=== PATIENT | male | born 1975 | race Caucasian/White ===

== ENCOUNTER → 2022-02-12 14:45 | Outpatient (REF) | payer OTHER, SELFPAY | LOC: HO.SL 14:45 | PROVIDERS: PCP Physician Assistant; Visit Provider Psychiatry & Neurology Neurology | DX: G47.33 Obstructive sleep apnea (adult) (pediatric) (principal) | CPT/HCPCS: 95806 ==

== ENCOUNTER 2025-06-28 13:21 | Outpatient (AMB) | payer OTHER, SELFPAY ==
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
--- OUTSIDE RECORDS SUMMARY | 2025-06-28 17:20 | XMS_ITS | Encounter Summary ---
Author Organization [facility] Address [address] [address] Phone Care Team Providers Care Tester Armature Or Fields Name Role Phone Theresa Workman PA-C Primary Care Provider + Encounter Details Date Type Department Care Team (Late st Contact Info) Description 05/02/2024 Office Communication [facility] [address] [facility] [address] [place] [address] Marcela Kelley ARNP [address] [address] Social History Tobacco Use Types Packs/Day Years Used Date Smoking Tobacco: Light Smoker Cigarettes Smokeless Tobacco: Current Chew Alcohol Use Standard Drinks/Week Comments Yes 0 (1 standard drink = 0.6 oz pur e alcohol) Varies per day Sex and Gender Information Value Date Recorded Sex Assigned at Not on file Legal Sex Male 4:01 PM EDT Gender Identity Not on file Sexual Orientation Not on file documented as of this encounter Plan of Treatment Upcoming Encounters Date Type Department Care Team (Late st Contact Info) Description 07/05/2025 1:00 PM EDT Office Visit [facility] [address] [phone] Marcela Kelley ARNP [address] [address] documented as of this encounter Visit Diagnoses Not on filedocumented in this encounter Care Teams Tester Armature Or Fields Relationship Specialty Start Date End Date Theresa Workman PA-C [facility] [place], [place] PCP - General Physician Train Announcer 01/02/21 documented as of this encounter
--- OUTSIDE RECORDS SUMMARY | 2025-06-28 17:20 | XMS_ITS | Clinical Summary ---
Author Organization [facility] Address [address] [facility] [address] [place] [address] Phone Care Team Providers Care International Trade Compliance Manager Name Role Phone Theresa Workman PA-C Primary Care Provider + Allergies Active Allergy Reactions Criticality Noted Date Comments Gluten Meal 04/11/2020 GI upset, joint pain Lisinopril 12/24/2021 Angioedema, Swelling face Other 10/15/2021 Medications cetirizine (ZyrTEC) 10 MG tablet 11/09/2020 Active omeprazole (PriLOSEC) [address] capsule 01/15/2021 Active SM ClearLax 17 GM/SCOOP powder 11/29/2020 Act bentley testosterone cypionate (DEPO-TESTOTERON E) 200 MG/ML injection 01/16/2021 Active Ascorbic Acid (vitamin C) 1000 MG tablet Take 100 mg by mouth 1 (one) time each day Active magnesium 30 MG tablet Take 30 mg by mouth in the morning and 30 mg in the evening. Active methocarbamol (ROBAXIN) 500 MG tablet as needed. 10/26/2023 Active Dapagliflozin Propanediol (Farxiga) 10 MG tabletIndication s:Stage 3a chronic kidney disease (HCC),Proteinuri a, not otherwise specified,Hypert ension Take 10 mg by mouth 1 (one) time each day 30 tablet 11 08/08/2024 08/08/20 25 Active metoprolol succinate XL (TOPROL-XL) 200 MG 24 hr tabletIndication s:Stage 3a chronic kidney disease (HCC),Proteinuri a, not otherwise specified,Hypert ension Take 1 tablet (200 mg total) by mouth 1 (one) time each day 90 tablet 3 08/08/2024 08/08/20 25 Active losartan (Cozaar) 50 MG tabletIndication s:Stage 3a chronic kidney disease (HCC),Proteinuri a, not otherwise specified,Hypert ension Take 1 tablet (50 mg total) by mouth 1 (one) time each day 90 tablet 1 02/20/2025 08/19/20 25 Active cloNIDine (CATAPRES) 0.2 MG tabletIndication s:Hypertension Take 1 tablet (0.2 mg total) by mouth in the morning and 1 tablet (0.2 mg total) in the evening. 60 tablet 5 02/20/2025 08/19/20 25 Active Active Problems Problem Noted Date Diagnosed Date Acute nontraumatic kidney injury, not otherwise specified 01/04/2025 Hypo-osmolality and hyponatremia 08/13/2024 Stage 3a chronic kidney disease 08/08/2024 Proteinuria, not otherwise specified 01/20/2021 Hypertension 01/20/2021 Encounters Date Type Department Care Team Description 05/18/2025 Orders Only [facility] [address] [address] Marcela Kelley ARNP Acute nontraumatic kidney injury, not otherwise specified (HCC); Stage 3a chronic kidney disease (HCC); Proteinuria, not otherwise specified; Hypertension from Last 3 Months Family History Medical History Relation Comments Cancer Father Cancer Father's Brother Diabetes Father's Brother Diabetes Maternal Grandmother Diabetes Paternal Grandfather Cancer Paternal Grandmother Relation Status Comments Father Father's Brother Maternal Grandmother Paternal Grandfather Paternal Grandmother Social History Tobacco Use Types Packs/Day Years Used Date Smoking Tobacco: Former Cigarettes Smokeless Tobacco: Former Chew Tobacco Cessation:Counseling Given: Not Answered Alcohol Use Standard Drinks/Week Comments Yes 0 (1 standard drink = 0.6 oz pur e alcohol) Varies per day Sex and Gender Information Value Date Recorded Sex Assigned at Not on file Legal Sex Male 4:01 PM EDT Gender Identity Not on file Sexual Orientation Not on file Last Filed Vital Signs Vital Sign Reading Time Taken Comments Blood Pressure 101/82 01/04/2025 3:16 PM EDT Pulse 61 01/04/2025 3:16 PM EDT Temperature - - Respiratory Rate - - Oxygen Saturation 99% 08/04/2023 10:16 AM EDT Inhaled Oxygen Concentration - - Weight 114 kg (252 lb) 01/04/2025 3:16 PM EDT Height 180.3 cm (5' 11 ) 10/15/2021 11:07 AM EST Body Mass Index 35.15 10/15/2021 11:07 AM EST Plan of Treatment Upcoming Encounters Date Type Department Care Team (Late st Contact Info) Description 07/05/2025 1:00 PM EDT Office Visit [facility] [address] [address] Marcela Kelley ARNP [address] [address] Health Maintenance Due Date Last Done Comments Hepatitis B Vaccine (1 of 3 - 19+ 3-dose series) 07/13 Pneumococcal Vaccine: Peds ( 0 to 5 Years) and At-Risk Patients (6 to 49 Years) (1 of 2 - PCV) 1994 Colorectal Cancer Screening: Annual FOBT 2024 Colorectal Cancer Screening: Colonoscopy 2024 Colorectal Cancer Screening: Sigmoidoscopy 2024 Influenza Vaccine (#1) 2025 Insurance [facility] [place] [phone] Care Teams International Trade Compliance Manager Relationship Specialty Start Date End Date Theresa Workman PA-C [address] [place], [place] PCP - General Physician Airplane Tester 01/02/21
--- OUTSIDE RECORDS SUMMARY | 2025-06-28 17:20 | XMS_ITS | Clinical Summary ---
Author Organization [facility] Address [address] [place] [address] Care Team Providers Care Fish Worm Grower Name Role Phone Theresa Workman PA-C Primary Care Provider Allergies Active Allergy Reactions Criticality Noted Date Comments Lisinopril 03/08/2023 Medications Medication Sig Dispensed Refills Start Date End Date Status cloNIDine (CATAPRES) 0.2 MG tablet Take 1 tablet (0.2 mg total) by mouth 2 (two) times a day. 0 Active losartan (COZAAR) 100 MG tablet Take 1 tablet (100 mg total) by mouth daily. 0 Active Magnesium 400 MG CAPS Take 1 capsule by mouth daily. 90 capsule 0 03/08/2023 Active Pregabalin (LYRICA PO) Take by mouth. 0 Active celecoxib (CeleBREX) 200 MG capsule Take 1 capsule (200 mg total) by mouth 2 (two) times a day. 0 Active Methylphenidate HCl (RITALIN PO) Take by mouth. 0 Active omeprazole (PriLOSEC) 20 MG capsule Take 1 capsule (20 mg total) by mouth daily. 0 Active Active Problems Problem Noted Date Diagnosed Date Folic acid deficiency 03/17/2023 Family History Medical History Relation Name Comments Cancer Paternal Grandmother Relation Name Status Comments Paternal Grandmother Social History Tobacco Use Types Packs/Day Years Used Date Smoking Tobacco: Every Day Cigarettes Smokeless Tobacco: Never Alcohol Use Standard Drinks/Week Comments Yes 0 (1 standard drink = 0.6 oz pur e alcohol) Sex and Gender Information Value Date Recorded Sex Assigned at Not on file Gender Identity Not on file Sexual Orientation Not on file Job Start Date Occupation Industry Not on file Not on file Not on file Last Filed Vital Signs Vital Sign Reading Time Taken Comments Blood Pressure 129/83 05/02/2024 2:58 PM EDT Pulse 62 05/02/2024 2:58 PM EDT Temperature 36.4 C (97.6 F) 05/02/2024 2:58 PM EDT Respiratory Rate - - Oxygen Saturation 98% 05/02/2024 2:58 PM EDT Inhaled Oxygen Concentration - - Weight 111.1 kg (245 lb) 05/02/2024 2:58 PM EDT Height 181.6 cm (5' 11.5 ) 11/23/2023 2:32 PM ES T Body Mass Index 33.69 11/23/2023 2:32 PM EST Plan of Treatment Health Maintenance Due Date Last Done Comments Hepatitis B Vaccines (1 of 3 - 3-dose series) 1975 Hepatitis C Screening 1975 COVID-19 Vaccine (#1) 01/11/1976 Pneumococcal Vaccine (1 of 2 - PCV) 1981 Depression Screening 1987 Preventative Health Evaluation 1993 Tobacco Cessation Counseling 1993 DTap / Tdap / Td (1 - Tdap) 1994 Colon Cancer Screening (Colonoscopy) 2020 Influenza Vaccine (#1) 2025 RSV Ped < 20 months Aged Out No longe r eligible based on patient's age to complete this topic Care Teams Fish Worm Grower Relationship Specialty Start Date End Date Theresa Workman PA-C [address] [place] [id number] PCP - General Physician [employer] 4/6/23
== END 2025-06-28 13:50 | disposition home or self-care (01) ==
LOC: HO.HSM 13:21
PROVIDERS: PCP Physician Assistant; Visit Provider Registered Nurse
DX: F98.8 Other specified behavioral and emotional disorders with onset usually occurring in childhood and adolescence (principal); G47.00 Insomnia, unspecified
CPT/HCPCS: 98014